=== PATIENT | female | born 1975 | race Caucasian/White ===

== ENCOUNTER 2023-11-28 23:03 | Day surgery (SDC) | payer OTHER, SELFPAY ==
[2023-11-28 23:10] VITALS: O2SAT 99
--- NOTE | 2023-11-28 23:10 | CT_ITS ---
Patient: HUNTER BARILLAS Facility:?[facility] R[facility] Patient ID:?[id number] Site Patient ID:?[id number] Site :?1975 Study:?CT-Abdomen/Pelvis W/ISOVUE 370 74CC-11/28/2023 11:48:32 PM Ordering Physician:SAUL Final Report: INDICATION: Diffuse abdominal pain TECHNIQUE: CT Abdomen and pelvis with i.v. contrast. Coronal and sagittal reformats were obtained. CONTRAST: 74 mL Isovue 370 COMPARISON: None FINDINGS: Lower chest: Unremarkable. Liver: Unremarkable. Spleen: Unremarkable. Pancreas: Unremarkable. Gallbladder: Multiple radiolucent gallstones are noted. Kidney: Unremarkable. No kidney or ureteral stones or obstruction seen. Adrenal: Unremarkable. Bowel: The bowel is unremarkable in appearance. The appendix is coiled along the medial tip of the cecum. The appendix is normal in appearance and size. Vascular: Unremarkable. Lymph: Unremarkable. Peritoneum: Unremarkable. No pneumoperitoneum is seen. No significant ascites is noted. Pelvis: Unremarkable. Soft tissue: Unremarkable. Bone: Unremarkable for age. IMPRESSION: 1. Multiple radiolucent gallstones are noted. Dictated by Zachary Potter MD @ 11/29/2023 12:09:01 AM Please note that all CT scans at this facility use dose modulation, iterative reconstruction, and/or weight-based dosing when appropriate to reduce radiation dose to as low as reasonably achievable. Dictated by: Zachary Potter MD @ 11/29/2023 00:09:16 Signed by:?Zachary Potter MD @11/29/2023 12:09:16 AM (Electronic Signature)
--- NOTE | 2023-11-28 23:11 | ED_ITS ---
HPI - General Adult General Chief complaint: Abdominal Pain Stated complaint: muscle cramps Time Seen by Provider: 11/28/23 23:06 History of Present Illness HPI narrative: Patient is a 48-year-old woman who developed the abrupt onset of abdominal an midline back pain at rest 1 hour ago. She has not had any aggravating factors rib. She is not able to get comfortable and states the pain is severe. She has had no nausea or vomiting. Pain is poorly localizable but seems to be centered in the mid abdomen with radiation posteriorly. She has had no dysuria no nausea no vomiting no fevers no chills. She has had no similar symptoms previously. She states that she is not . Related Data Home Medications Medication Instructions Recorded Confirmed No Known Home Medications 11/28/23 11/28/23 Allergies Allergy/AdvReac Type Severity Reaction Status Date / Time No Known Drug Allergies Allergy Verified 11/28/23 23:14 Review of Systems Status of ROS: Reports: 10 or more systems reviewed and unremarkable except as noted in History and below PFSH PFS Social History Smoking Status: Never smoker Second hand tobacco smoke exposure: No How often do you have a drink containing alcohol: never AUDIT-C Alcohol total score: 0 Non-prescribed substance use: marijuana (any form) Exam Narrative: Exam Narrative: EXAM GENERAL: Patient appears comfortable and well. EYES: No scleral icterus. LYMPH: No supraclavicular or cervical lymphadenopathy. SKIN: Visible skin seen during exam normal or with benign process only. EXT: No dependent lower extremity pedal edema. HEART: Regular rate and rhythm with no murmurs, rubs, or gallops. LUNGS: Clear to auscultation bilaterally with no crackles or wheezes. ABD: Soft, non tender, non distended. PSYCH: Good eye contact, speech is not pressured. Const: Vital Signs, click to edit/add: Vital Signs - 24 hr 11/28/23 23:10 11/28/23 23:12 11/29/23 00:21 Temperature 97.9 F 97.9 F Pulse Rate [Pulse Oximeter] 77 Respiratory Rate 18 Blood Pressure [Ri ght Upper Arm] 117/82 Pulse Oximetry 99 97 Oxygen Delivery Me thod Room Air Course Course ED Course: Patient seen examined. Normal saline 1 L Toradol 30 mg given. CBC CMP amylase UA CT abdomen pelvis pending. Vital Signs Vital signs: Initial Vital Signs Pulse Oximetry 99 11/28/23 23:10 Vital Signs Pulse Oximetry 99 11/28/23 23:10 Temperature 97.9 F 11/29/23 00:21 Pulse Rate 77 11/28/23 23:12 Respiratory Rate 18 11/28/23 23:12 Blood Pressure 117/82 11/28/23 23:12 Pulse Oximetry 97 11/28/23 23:12 Oxygen Delivery Method Room Air 11/28/23 23:12 Medications Administered Medications: Generic Name Dose Route Start Last Admin Trade Name Freq PRN Reason Stop Dose Admin Ondansetron HCl 4 mg 11/29/23 00:19 11/28/23 23:40 Ondansetron 2 Mg/Ml Inj IVP 11/29/23 00:20 4 mg ONCE ONE Administration Potassium Chloride 20 meq 11/29/23 00:18 11/29/23 00:19 Potassium Chloride 10 Meq Capsule Er PO 11/29/23 00:19 20 meq ONCE ONE Administration Discontinued Medications Generic Name Dose Route Start Last Admin Trade Name Freq PRN Reason Stop Dose Admin Sodium Chloride 1,000 mls @ 1,000 mls/hr 11/28/23 23:10 11/29/23 00:22 0.9 % Sodium Chloride 1000 Ml IV 11/29/23 00:09 Infused .Q1H MICHEL Infusion Ketorolac Tromethamine 30 mg 11/28/23 23:10 11/28/23 23:20 Ketorolac 30 Mg/Ml Inj IVP 11/28/23 23:11 30 mg ONCE ONE Administration Medical Decision Making [facility] Narrative Medical decision making narrative: Patient presents with abdominal pain is found have acute cholecystitis. She also has mildly reduced potassium. She was given potassium orally in the em ergency room. CT showed multiple gallstones ultrasound showed thickened gallbladder wall with pericystic fluid with a normal common bile duct. At this time I case was discussed with General surgery as well as hospitalist. Patient will be admitted for further evaluation kept NPO and likely to have cholecystectomy in the morning. Differential diagnosis includes but not limited to colitis cholecystitis diverticulitis appendicitis viral syndrome. Lab Data Labs: Lab Results 11/28/23 Range/Units 23:10 WBC 7.53 (4.50-11.00) K/uL RBC 4.15 (4.00-5.20) m/uL Hgb 12.9 (12.0-16.0) gm/dL Hct 38.1 (33.0-51.0) % MCV 92 (80-100) fL MCH 31 (26-34) pg MCHC 34 (32-36) gm/dL RDW Coeff of Miguelina 11.9 (11.5-15.5) % Plt Count 327 (140-440) K/uL Neut % (Auto) 38.4 L (42.0-72.0) % Lymph % (Auto) 48.5 H (20-44) % Sanders % (Auto) 9.0 (0.0-11.0) % Eos % (Auto) 3.2 (0.0-7.0) % Baso % (Auto) 0.8 (0.0-3.0) % Neut # (Auto) 2.90 (1.7-7.0) K/uL Lymph # (Auto) 3.70 H (0.90-2.90) K/uL Sanders # (Auto) 0.70 (0.00-0.90) K/UL Eos # (Auto) 0.24 (0.00-0.50) K/uL Baso # (Auto) 0.06 (0.00-0.30) K/uL Abs Immat Gran (auto) 0.01 (0.00-0.30) K/uL Imm/Tot Granulo (auto) 0.1 % Sodium 138 (135-149) mmol/L Potassium 2.9 L* (3.6-5.1) mmol/L Chloride 102 (96-114) mmol/L Carbon Dioxide 25 (20-32) mmol/L Anion Gap 11 (7-15) mEq/L BUN 17 (5-24) mg/dL Creatinine 0.7 (0.5-1.5) mg/dL Estimated Creat Clear 96.62 Estimated GFR 107 ml/min Glucose 140 H (60-115) mg/dL Calcium 9.8 (8.4-10.6) mg/dL Total Bilirubin 0.4 (0.1-1.5) mg/dL AST 23 (12-35) U/L ALT 21 (4-35) U/L Alkaline Phosphatase 71 (40-150) U/L Total Protein 8.5 H (6.0-8.3) g/dL Albumin 4.7 (3.3-5.0) g/dL Amylase 75 (18-89) U/L Urine Color Yellow (Yellow) Urine Appearance Clear (Clear) Urine pH 6.0 (5.0-8.5) Ur Specific [place] >= 1.030 (1.000-1.030) Urine Protein Trace A (Negative) Urine Glucose (UA) Negative (Negative) Urine Ketones Negative (Negative) Urine Blood 2+ A (Negative) Urine Nitrite Negative (Negative) Urine Bilirubin Negative (Negative) Urine Urobilinogen 0.2 (0.2-1.0) Ur Leukocyte Esterase Trace A (Negative) Urine RBC 2-5 A (0-2) Urine WBC 2-5 (0-5) Ur Squamous Epith Cells Moderate A (None-Few) Urine Bacteria Moderate A (None) Discharge Plan Discharge Clinical Impression: Acute cholecystitis Patient Disposition: Admitted As Observation Condition: Stable Activity Level: No Restrictions and Other Discharge Diet: Regular and Other Prescriptions: No Action No Known Home Medications Follow Up/Referrals: Mike Mitchell MD [Referring] -
[2023-11-28 23:12] VITALS: BP 117/82; PULSE 77; RESP 18; TEMP 36.6; O2SAT 97; BMI 23.5
[2023-11-28] MEDS: 0.9 % SODIUM CHLORIDE 1000 ml 1,000 ML IV (23:19)
[2023-11-28] MEDS: KETOROLAC 30 MG/ML inj IVP (23:20)
[2023-11-28 23:21] LABS: Basophils Absolute Auto 0.06 K/uL (0.00-0.30); Basophils Percent Auto 0.8 % (0.0-3.0); Eosinophils Absolute Auto 0.24 K/uL (0.00-0.50); Eosinophils Percent Auto 3.2 % (0.0-7.0); Hematocrit 38.1 % (33.0-51.0); Hemoglobin* 12.9 gm/dL (12.0-16.0); Immature Granulocytes Abs Auto 0.01 K/uL (0.00-0.30); Immature Granulocytes Pct Auto 0.1 %; Lymphocytes Percent Auto 48.5 % (20-44); Mean Corpuscular HGB Conc 34 gm/dL (32-36); Mean Corpuscular Hemoglobin 31 pg (26-34); Mean Corpuscular Volume 92 fL (80-100); Neutrophils Percent Auto 38.4 % (42.0-72.0); Platelet Count* 327 K/uL (140-440); RDW Coefficient of Variation % 11.9 % (11.5-15.5); Red Blood Count 4.15 m/uL (4.00-5.20); White Blood Count* 7.53 K/uL (4.50-11.00)
[2023-11-28 23:26] LABS: Slide Review Reflex No
[2023-11-28 23:29] LABS: Appearance Urine Clear (Clear); Bilirubin Urine Negative (Negative); Blood Urine 2+ (Negative); Color Urine Yellow (Yellow); Glucose Urine Negative (Negative); Ketones Urine Negative (Negative); Leukocyte Esterase Urine Trace (Negative); Nitrite Urine Negative (Negative); Protein Urine Trace (Negative); Specific Gravity Urine >= 1.030 (1.000-1.030); Urobilinogen Urine 0.2 (0.2-1.0)
[2023-11-28 23:37] LABS: Albumin* 4.7 g/dL (3.3-5.0); Chloride* 102 mmol/L (96-114); Sodium* 138 mmol/L (135-149)
[2023-11-28 23:40] LABS: Alanine Aminotransferase* 21 U/L (4-35); Alkaline Phosphatase* 71 U/L (40-150); Amylase* 75 U/L (18-89); Anion Gap 11 mEq/L (7-15); Aspartate Amino Transferase* 23 U/L (12-35); Bilirubin Total* 0.4 mg/dL (0.1-1.5); Blood Urea Nitrogen* 17 mg/dL (5-24); Calcium* 9.8 mg/dL (8.4-10.6); Carbon Dioxide* 25 mmol/L (20-32); Creatinine* 0.7 mg/dL (0.5-1.5); Est. Creatinine Clearance* 96.62; Estimated Glomerular Filt Rate 107 ml/min; Glucose* 140 mg/dL (60-115); Total Protein* 8.5 g/dL (6.0-8.3)
[2023-11-28] MEDS: ONDANSETRON 2 MG/ML inj 4 MG IVP (23:40)
[2023-11-28 23:42] LABS: Potassium* 2.9 mmol/L (3.6-5.1)
[2023-11-28 23:48] LABS: Bacteria Urine Moderate; Squamous Epithelial Cell Urine Moderate (None-Few)
[2023-11-29] VITALS (22 sets, daily range): BP systolic 102–147; BP diastolic 57–84; PULSE 60–100; RESP 14–20; TEMP 36.3–37.1; O2SAT 95–100; BMI 24.0
--- NOTE | 2023-11-29 00:18 | US_ITS ---
Patient: HUNTER BARILLAS Facility:?[facility] Patient ID:?[id number] Site Patient ID:?[id number] Site :?1975 Study:?US-Abdomen GALLBLADDER-11/29/2023 12:59:17 AM Ordering Physician:?PRISCILLA SMITH Final Report: INDICATION: Right upper quadrant abdominal gallbladder pain TECHNIQUE: Ultrasound abdomen limited. Sonographic images of the gallbladder and biliary tree were obtained using yañez-scale and color Doppler images. COMPARISON: None FINDINGS: Liver: The liver parenchyma is normal in echotexture. Gallbladder: Numerous echogenic gallstones are present. The gallbladder wall is near the upper limits of normal measuring 3-4 mm. 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 Common bile duct: The common bile duct is normal in appearance and size. No intrahepatic biliary ductal dilatation seen. Vascular: Proximal abdominal aorta and IVC are not demonstrated. The visualized portal vein is patent with normal anterograde flow. IMPRESSION: 1. Numerous echogenic gallstones are present. Dictated by: Zachary Potter MD @ 11/29/2023 01:11:26 Signed by:?Zachary Potter MD @11/29/2023 1:11:26 AM (Electronic Signature)
[2023-11-29] MEDS: POTASSIUM CHLORIDE 10 MEQ CAPSULE ER 20 MEQ PO (00:19)
[2023-11-29] MEDS: HYDROmorphone 0.5 mg/0.5 ml inj IVP ×4 (01:14→08:10)
[2023-11-29] MEDS: 0.9 % SODIUM CHLORIDE 1000 ml 1,000 ML 125 ML IV (02:17)
--- NOTE | 2023-11-29 02:37 | W.PM.THH&P_ITS ---
Telehealth- H&P: HPI History of Present Illness Date Seen: 11/29/23 Chief complaint: Abdominal Pain Narrative: Siena Francisco is seen as an Interactive Telehealth visit. Siena Francisco is a 48 year old Female who presented to the emergency room with abdominal pain. Hope is seen in the presence of her daughter Yoel. Siena states that approximately 8 PM this evening after eating dinner, she started having some abdominal cramping across the middle part of her abdomen. She states that this continued to worsen in intensity and at its worst she describes the pain as 7-8 out of 10. She really did not have much for nausea but did vomit once. She has not had any recent dark or tarry stools. She states she had experienced pain is something like this intermittently before but they never lasted as long as they did tonight. She has not had any fever or chills, but with the unrelenting abdominal discomfort, she presented to the emergency room for further evaluation and treatment. In the emergency room she did get a CT scan of the abdomen which showed multiple gallstones and an ultrasound of the right upper quadrant showed thickened gallbladder wall with paracystic fluid and a normal common bile duct. With these findings consistent with acute cholecystitis, she is currently being admitted to the medical service for further evaluation and treatment and surgical consult in the morning for possible acute cholecystectomy. At the time I am seeing Siena, she does confirm the above history. She otherwise denies any other acute complaints or problems at the time I am seeing her. Review of Systems Status of ROS: Reports: 10 or more systems reviewed and unremarkable except as noted in History and below [facility] PFS Social History What is your current living situation?: I presently have a place to live Problems where you live: no known problems Problems where you live details: N/A In the past 12 months, utilities in danger of being shut off: no In past 12 months, lack of transportation kept you from medical appts, meetings, work, or getting things needed for daily living: no In the past 12 mos, have been you worried that your food would run out before you had money to buy more?: never true In the past 12 mos, the food you bought just didn't last and you didn't have money to buy more?: never true Highest level of school completed/degree received: some college, no degree Smoking Status: Never smoker Second hand tobacco smoke exposure: No How often do you have a drink containing alcohol: never AUDIT-C Alcohol total score: 0 Non-prescribed substance use: marijuana (any form) Caffeine: Yes How often does anyone, including family, friends and others, physically hurt you : never How often does anyone, including family, friends and others, insult or talk down to you: never How often does anyone, including family, friends and others, threaten you with harm: never How often does anyone, including family, friends and others, scream or curse at you: never service: No Meds Home Medications and Allergies Home Medications Medication Instructions Recorded Confirmed Type No Known Home Medications 11/28/23 11/28/23 History Allergies Allergy/AdvReac Type Severity Reaction Status Date / Time No Known Drug Allergies Allergy Verified 11/28/23 23:14 Exam Narrative Exam Narrative: Physical Exam GENERAL: vital signs reviewed, well developed and nourished, in no distress HEENT: pupils are equal round and reactive to light, extraocular movements are grossly within normal limits and oral mucosa is moist. NECK: Supple without lymphadenopathy or thyromegaly according to nursing staff examination observation HEART: Regular rate and rhythm without any rubs, murmurs or gallops. LUNGS: Clear to auscultation bilaterally with good air movement throughout ABDOMEN: Observation from nurse assisted exam, abdomen appears soft with minor tenderness across the right upper and left upper quadrants. Otherwise, she is noted to have positive bowel sounds noted. Gustafson sign is positive EXTREMITIES: Strength and sensation is observed to be grossly within normal limits in the upper and lower extremities. No focal strength deficit is observed SKIN: Observed warm and dry with color normal NEURO: Alert, awake and oriented ?3. Answers all questions appropriately. No focal neuro deficits are noted. PSYCH: Affect normal Const Vital Signs, click to edit/add: Vital Signs - 24 hr 11/28/23 23:10 11/28/23 23:12 11/29/23 00:21 Temperature 97.9 F 97.9 F Pulse Rate [Pulse Oximeter] 77 Pulse Rate [Right Pulse Oximeter] Respiratory Rate 18 Blood Pressure [Right Arm] Blood Pressure [Right Upper Arm] 117/82 Pulse Oximetry 99 97 Oxygen Delivery Method Room Air 11/29/23 01:18 11/29/23 01:39 Temperature 98.1 F 97.9 F Pulse Rate [Pulse Oximeter] 72 Pulse Rate [Right Pulse Oximeter] 74 Respiratory Rate 14 16 Blood Pressure [Right Arm] 126/67 Blood Pressure [Right Upper Arm] 114/79 Pulse Oximetry 96 100 Oxygen Delivery Method Room Air Room Air Documenting provider has reviewed patient's vital signs: yes Hospitalist - H&P: Result Labs Labs: Short CBC 11/28/23 Range/Units 23:10 WBC 7.53 (4.50-11.00) K/uL Hgb 12.9 (12.0-16.0) gm/dL Hct 38.1 (33.0-51.0) % Plt Count 327 (140-440) K/uL BMP 11/28/23 23:10 Sodium 138 Potassium 2.9 L* Chloride 102 Carbon Dioxide 25 BUN 17 Creatinine 0.7 Glucose 140 H Calcium 9.8 Liver Function 11/28/23 Range/Units 23:10 Total Bilirubin 0.4 (0.1-1.5) mg/dL AST 23 (12-35) U/L ALT 21 (4-35) U/L Alkaline Phosphatase 71 (40-150) U/L Albumin 4.7 (3.3-5.0) g/dL Urine 11/28/23 Range/Units 23:10 Urine Color Yellow (Yellow) Urine Appearance Clear (Clear) Urine pH 6.0 (5.0-8.5) Ur Specific [place] >= 1.030 (1.000-1.030) Urine Protein Trace A (Negative) Urine Glucose (UA) Negative (Negative) Assessment and Plan Assessment and plan (1) Acute cholecystitis: Status: Acute Plan Assessment: 1. Abdominal pain with vomiting 2. CT scan and right upper quadrant ultrasound evidence of gallbladder wall thickening and pericystic fluid consistent with acute cholecystitis contributing to #1 above 3. Minor hypokalemia Plan: At this time Siena will be admitted to the medical service for ongoing evaluation and treatment for what looks to be an acute cholecystitis. I will consult surgery for the a.m. for further evaluation and treatment options with possible need for cholecystectomy. I will ask Siena to remain n.p.o. currently and I will put her on some IV fluid for ongoing hydration. I will offer some symptomatic pain medications including IV Dilaudid if needed. I will give her some IV potassium for supplementation of her hypokalemia. Will follow-up with chemistries and coagulation labs for the a.m. I have discussed this plan with Siena and she is agreeable to proceed. Will continue to follow closely from medical standpoint. I have discussed CODE STATUS and she does wish to be a full code. Telehealth: Statement Statement Telehealth Visit: Today's History and Physical is provided via interactive telehealth by Bryan Page MD.? Patient is located at [facility].? Provider is located at [facility].? Nursing staff assisted with the patient's exam. The visit being done today meets criteria for a telehealth visit and the patient or patient?s parent/guardian is aware the visit is a telehealth visit. Camera Start Time: 01:41 Camera End Time: 01:51
[2023-11-29] MEDS: POTASSIUM CHLORIDE 10 MEQ/100 ML PIGGYBACK 100 MEQ IVPB ×3 (02:58→05:04)
[2023-11-29] MEDS: ONDANSETRON 2 MG/ML inj 4 MG IVP ×2 (02:59→09:27)
[2023-11-29] MEDS: PIPERACILLIN/TAZOBACTAM 4.5 GM in 0.9 % SODIUM CHLORIDE Mini-bag 100 ML IVPB ×2 (03:08→09:53)
[2023-11-29] MEDS: 0.9 % SODIUM CHLORIDE 250 ml IV (04:10)
--- NOTE | 2023-11-29 04:34 | PC.NURSE ---
Shift note: Pt arrived at the unit from the ED at 0130 on a wheelchair accompanied by her daughter. Pt was conscious, alert and oriented, complained of abdominal pain of 4/10 located across the entire upper quadrants radiating to the back. No n/v/d reported. Pt had no fever on arrival. [place] [address], pt complained of an increased in pain to 8/10. Deluded given and was effective. IV N/S set up to infuse at 125ml/hr, KCL 3x and abx given. Pt was instructed on the need for NPO for possible surgery today. Pt had adequate sleep. Vitally stable.
[2023-11-29 06:29] LABS: INR 1.08 (0.91-1.10); Prothrombin Time 14.6 Seconds
[2023-11-29 06:33] LABS: Chloride* 105 mmol/L (96-114); Potassium* 4.1 mmol/L (3.6-5.1); Sodium* 136 mmol/L (135-149)
[2023-11-29 06:36] LABS: Anion Gap 6 mEq/L (7-15); Carbon Dioxide* 25 mmol/L (20-32); Creatinine* 0.5 mg/dL (0.5-1.5); Est. Creatinine Clearance* 135.26; Estimated Glomerular Filt Rate 116 ml/min
[2023-11-29 06:37] LABS: Blood Urea Nitrogen* 12 mg/dL (5-24); Calcium* 8.4 mg/dL (8.4-10.6); Glucose* 140 mg/dL (60-115)
--- NOTE | 2023-11-29 09:24 | PM.GSCN ---
History of Present Illness Consult details Date Seen: 11/29/23 Consult date: 11/29/23 Narrative: Patient is a 48-year-old female who presented to the emergency department with severe right upper quadrant abdominal pain. The pain started around 7:00 p.m. last night. She did eat a heavy dinner, burrito. She had some nausea while in the emergency department, no emesis. No fevers at home. No diarrhea. She has had pain like this before. Previously her episodes were not as severe and would resolve fairly quickly. In between episodes she would feel completely normal. Since being admitted her pain has improved, but is still persisting in the right upper quadrant. She has never had abdominal surgery before. Review of Systems Status of ROS: Reports: 10 or more systems reviewed and unremarkable except as noted in History and below [facility] Social History What is your current living situation?: I presently have a place to live Problems where you live: no known problems Problems where you live details: N/A In the past 12 months, utilities in danger of being shut off: no In past 12 months, lack of transportation kept you from medical appts, meetings, work, or getting things needed for daily living: no In the past 12 mos, have been you worried that your food would run out before you had money to buy more?: never true In the past 12 mos, the food you bought just didn't last and you didn't have money to buy more?: never true Highest level of school completed/degree received: some college, no degree Smoking Status: Never smoker Second hand tobacco smoke exposure: No How often do you have a drink containing alcohol: never AUDIT-C Alcohol total score: 0 Non-prescribed substance use: marijuana (any form) Caffeine: Yes How often does anyone, including family, friends and others, physically hurt you: never How often does anyone, including family, friends and others, insult or talk down to you: never How often does anyone, including family, friends and others, threaten you with harm: never How often does anyone, including family, friends and others, scream or curse at you: never service: No Meds Home Medications and Allergies Home Medications Medication Instructions Recorded Confirmed Type No Known Home Medications 11/28/23 11/28/23 History Allergies Allergy/AdvReac Type Severity Reaction Status Date / Time No Known Drug Allergies Allergy Verified 11/28/23 23:14 Exam Narrative: Exam Narrative: General: Alert and oriented, no acute distress Respiratory: Clear breath sounds bilaterally, maintained on room air CV: Well perfused Abdomen: Soft, tender to palpation right upper quadrant with some guarding, no rebound. Const: Vital Signs, click to edit/add: Vital Signs - 24 hr 11/28/23 23:10 11/28/23 23:12 11/29/23 00:21 Temperature 97.9 F 97.9 F Pulse Rate [Pulse Oximeter] 77 Pulse Rate [Right Pulse Oximeter] Respiratory Rate 18 Blood Pressure [Ri ght Arm] Blood Pressure [Ri ght Upper Arm] 117/82 Pulse Oximetry 99 97 Oxygen Delivery Me thod Room Air 11/29/23 01:18 11/29/23 01:39 11/29/23 02:50 Temperature 98.1 F 97.9 F 97.9 F Pulse Rate [Pulse Oximeter] 72 Pulse Rate [Right Pulse Oximeter] 74 74 Respiratory Rate 14 16 16 Blood Pressure [Ri ght Arm] 126/67 126/67 Blood Pressure [Ri ght Upper Arm] 114/79 Pulse Oximetry 96 100 100 Oxygen Delivery Me thod Room Air Room Air Room Air Results Labs Labs: Abnormal lab results 11/28/23 11/29/23 Range/Units 23:10 05:38 Neut % (Auto) 38.4 L (42.0-72.0) % Lymph % (Auto) 48.5 H (20-44) % Lymph # (Auto) 3.70 H (0.90-2.90) K/uL Potassium 2.9 L* (3.6-5.1) mmol/L Anion Gap 6 L (7-15) mEq/L Glucose 140 H 140 H (60-115) mg/dL Total Protein 8.5 H (6.0-8.3) g/dL Urine Protein Trace A (Negative) Urine Blood 2+ A (Negative) Ur Leukocyte Esterase Trace A (Negative) Urine RBC 2-5 A (0-2) Ur Squamous Epith Cells Moderate A (None-Few) Urine Bacteria Moderate A (None) Diabetes panel 11/28/23 11/29/23 Range/Units 23:10 05:38 Sodium 138 136 (135-149) mmol/L Potassium 2.9 L* 4.1 (3.6-5.1) mmol/L Chloride 102 105 (96-114) mmol/L Carbon Dioxide 25 25 (20-32) mmol/L BUN 17 12 (5-24) mg/dL Creatinine 0.7 0.5 (0.5-1.5) mg/dL Glucose 140 H 140 H (60-115) mg/dL Calcium 9.8 8.4 (8.4-10.6) mg/dL AST 23 (12-35) U/L ALT 21 (4-35) U/L Alkaline Phosphatase 71 (40-150) U/L Total Protein 8.5 H (6.0-8.3) g/dL Albumin 4.7 (3.3-5.0) g/dL Calcium panel 11/28/23 11/29/23 Range/Units 23:10 05:38 Calcium 9.8 8.4 (8.4-10.6) mg/dL Albumin 4.7 (3.3-5.0) g/dL Pituitary panel 11/28/23 11/29/23 Range/Units 23:10 05:38 Sodium 138 136 (135-149) mmol/L Potassium 2.9 L* 4.1 (3.6-5.1) mmol/L Chloride 102 105 (96-114) mmol/L Carbon Dioxide 25 25 (20-32) mmol/L BUN 17 12 (5-24) mg/dL Creatinine 0.7 0.5 (0.5-1.5) mg/dL Glucose 140 H 140 H (60-115) mg/dL Calcium 9.8 8.4 (8.4-10.6) mg/dL Adrenal panel 11/28/23 11/29/23 Range/Units 23:10 05:38 Sodium 138 136 (135-149) mmol/L Potassium 2.9 L* 4.1 (3.6-5.1) mmol/L Chloride 102 105 (96-114) mmol/L Carbon Dioxide 25 25 (20-32) mmol/L BUN 17 12 (5-24) mg/dL Creatinine 0.7 0.5 (0.5-1.5) mg/dL Glucose 140 H 140 H (60-115) mg/dL Calcium 9.8 8.4 (8.4-10.6) mg/dL Total Bilirubin 0.4 (0.1-1.5) mg/dL AST 23 (12-35) U/L ALT 21 (4-35) U/L Alkaline Phosphatase 71 (40-150) U/L Total Protein 8.5 H (6.0-8.3) g/dL Albumin 4.7 (3.3-5.0) g/dL All other labs normal. Imaging Abdomen CT scan report/results: report reviewed and image reviewed Abdominal ultrasound report/results: report reviewed and image reviewed Progress Note:A&P Assessment and plan (1) Acute cholecystitis: Status: Acute Plan Patient is a 48-year-old female with clinical history and workup consistent with acute cholecystitis. Evidence on abdominal ultrasound of multiple stones, gallbladder wall thickening and pericholecystic fluid. LFTs within normal limits. No concern at this time for choledocholithiasis. I had a detailed conversation with the patient regarding the diagnosis of acute cholecystitis. We discussed the treatment options including observation with diet modification and laparoscopic cholecystectomy. We discussed the risks of surgery (including but not limited to) the risks of bleeding, infection, injury to other structures in the abdomen including bile duct injury, bile leak and conversion to an open operation. We discussed the possibility that the patient's pain not improve with surgery. We discussed the possibility of permanent post-operative diarrhea that may require medical management. Additionally, the conceivably of complications requiring additional surgery or further hospitalization were also discussed including the risks of NE, respiratory failure, stroke and blood clots. The patient voiced an understanding of our conversation, had the opportunity to ask questions, agreed to accept the risks of surgery and asked that we proceed with surgery. -OR for laparoscopic cholecystectomy
[2023-11-29] MEDS: LACTATED RINGERS 1000 ML 1,000 ML 100 ML IV (11:22)
--- NOTE | 2023-11-29 13:51 | P.GSOP_ITS ---
Operative Note Date of procedure: 11/29/23 Pre-op diagnosis: Acute cholecystitis Post-op diagnosis: Same Type of Procedure: Laparoscopic cholecystectomy Indications: Patient is a 48-year-old female with clinical workup and history consistent with acute cholecystitis. Risks and benefits of operative intervention were discussed at length with the patient. Risks included but was not limited to: Bleeding, infection, risk of damage to surrounding structures, possible need for additional procedures, possible need to convert to an open operation and postoperative complications such as pneumonia, pulmonary emboli or MA. All questions and concerns were addressed with the patient agreeing to proceed. Procedure Description: After discussing the risks and benefits of the procedure, the patient signed informed consent.? The operative site was marked and the patient was brought to the operating room and placed on the operating table in supine position.? Care was taken to pad the patient's pressure points.?? The patient was then intubated by anesthesia.?? The operative site was then prepped and draped in the usual sterile fashion.? A time-out was then performed. Entrance to the abdomen was gained via a 5 mm Visiport in the left upper quadrant. The abdomen was insufflated and briefly surveyed for signs of injury. There was none. Evidence of reactive fluid within the pelvis and above the liver. The gallbladder was dilated with some scattered areas of necrosis on the gallbladder wall. An 11 mm umbilical port was placed as well as 2 working ports along the right costal margin. Patient was then placed in reverse Trendelenburg position with the right side up. The gallbladder fundus was decompressed with a laparoscopic needle. The fundus was then grasped and retracted cephalad. The infundibulum was grasped. A combination of hook cautery and blunt dissection was used to carefully dissect out the cystic duct and artery. This portion of the procedure was made difficult secondary to surrounding edema of the tissues. The cystic artery was 1st isolated and seen to run onto the gallbladder body. Two clips were applied proximally and 1 clip distally and it was transected with scissors. Dissection continued on the cystic duct, which was dilated in appearance. The gallbladder was partially removed from the liver bed, to ensure no other intervening structures. During this portion of the procedure a small tear occurred on the distal aspect of the cystic duct with spillage of bile and stones. Due to the size of the duct the left upper quadrant 5 mm port was replaced with an 11 mm port and 10 mm clips were applied proximal to the tear and the cystic duct was transected with scissors. A Vicryl endoloop was applied to ensure closure of the cystic stump. The gallbladder was then taken off of the liver bed and removed from the abdomen using an Endo-Catch bag. The specimen was examined on the back table, evidence of a dilated cystic duct going into the body of the gallbladder. The gallbladder bed was surveyed for hemostasis. There was a small liver pa renchymal tear that occurred from retraction of the gallbladder during its dissection off of the liver. Cautery was applied to this area and a piece of Surgicel placed over the tear. No other areas of bleeding identified and hemostasis was excellent after these maneuvers. A small amount of bile and stones which had spilled were suctioned from the abdomen with an open 10 mm laparoscopic suction. The left upper quadrant 11 mm port was closed with the Steven-Shanna via an 0 Vicryl. The umbilical port fascia was closed open with an 0 Vicryl. All of the remaining ports were then removed under direct vision. The skin was closed with absorbable subcuticular suture. Steri-Strips were applied. Instrument sponge and needle counts were correct at the end of the case. The patient was then woken and transferred to the PACU in stable condition. Findings: Acute cholecystitis, inflamed and dilated gallbladder. Surrounding tissue edema and reactive inflammatory fluid. Anesthesia: GETA Surgeon: Angelique Bowen MD Estimated blood loss (mL): 5 Specimen: Gallbladder Condition: stable Disposition: PACU
--- NOTE | 2023-11-29 14:01 | W.ANESCHARGE ---
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
[2023-11-29] MEDS: HYDROCODONE-ACETAMIN 5-325 MG 1 TAB PO (18:26)
--- NOTE | 2023-11-29 19:05 | PC.NURSE ---
Jyv-ol-Hfaql Note (): Patient A&OX3 during shift. Patient presented to ED last night with severe abdominal pain. Patient reports pain this morning prior to surgery; IV Dilaudid given with improvement in pain. Patient also had nausea and vomiting; PRN Zofran given and symptoms improved. Patient had surgery today at 11:30 and arrived to floor at 1445. Patient has been stable recovering from surgery and vitals within normal limits. Patient maintaining O2 saturations on room air. Patient reports 3/10 pain; PRN [place] given. Patient tolerating liquids and soft foods. IV saline locked. Patient urinated x1 post-operatively. Patient denies nausea/vomiting post-operatively. Patient continues to be resting and just feels tired. Discharge education provided to patient and daughter picked up discharge medications. Patient continues to be quite tired and resting but will DC home today. Will continue to implement ongoing plan of care.
--- NOTE | 2023-11-29 20:40 | PC.NURSE ---
Pt discharged at 2020 this evening, accompanied by adult children. She reported abdominal pain as 2/10 before discharge, pain managed with ice and PRN [place]. Lung sounds clear to all lobes bilaterally and pt denied nausea when asked. She tolerated regular diet with no vomiting noted. Pt ambulated in hallway before discharge. IV to L AC removed prior to discharge with catheter tip noted to be intact. VSS and pt afebrile prior to discharge. All belongings removed from room prior to discharge. Surgical incisions to abdomen noted to be SAMSON covered by steri strips and scant amount of serosanguinous drainage.
== END 2023-11-29 20:21 | disposition home or self-care (01) ==
LOC: ED 11-29 01:01 → SS 11-29 01:27 → MEDSURG 11-29 01:28
PROVIDERS: Internal Medicine; Emergency Provider Internal Medicine; Visit Provider Surgery
PROC: 0FT44ZZ Resection of Gallbladder, Percutaneous Endoscopic Approach (ICD-10-PCS; CPT 47562; principal; 2023-11-29 12:00)
DX: K80.00 Calculus of gallbladder with acute cholecystitis without obstruction (principal); R10.11 Right upper quadrant pain; E87.6 Hypokalemia
CPT/HCPCS: 47562; 00790; 36415; 74177; 76705; 80048; 80053; 81001; 81003; 82150; 85025; 85610; 87086; 88304; 94761; 99140; 99283; 99284; 99285; A9270; J0330; J1100; J1170; J1580; J1630; J1885; J2405; J2543; J2704; J2710; J3010; J3480; J7030; J7050; J7120; Q9967